=== PATIENT | female | born 1995 | race Caucasian/White ===

== ENCOUNTER 2017-10-22 06:00 | Inpatient (IN) ==
[2017-10-22] MEDS ORDERED: Metoclopramide 10 MG/2 ML VIAL IVP PRN (06:34)
[2017-10-22] MEDS ORDERED: Ondansetron 4 MG/2 ML VIAL IVP PRN (06:34)
[2017-10-22] MEDS ORDERED: Famotidine 20 MG/2 ML VIAL IVP PRN (06:34)
[2017-10-22] MEDS ORDERED: Naloxone 0.4 MG/ML INJ IVP PRN (06:34)
[2017-10-22] MEDS ORDERED: Ringers Solution, Lactated 1,000 ML IVC SCH (06:45)
[2017-10-22 06:48] LABS: Basophils % 0.3 %; Eosinophils # 0.2 K/mcL (0.0-0.6); Eosinophils % 1.9 %; Hematocrit 34.3 % (35.3-44.9); Hemoglobin 11.5 g/dL (11.5-15.4); Immature Granulocytes % 1.5 % (0-4); Lymphocytes # 2.6 K/mcL (0.6-4.6); Lymphocytes % 22.4 %; Mean Corpuscular HGB Conc 33.5 g/dL (31.6-35.5); Mean Corpuscular Volume 86.4 fL (83.0-100.0); Mean Platelet Volume 10.3 fL (9.4-12.4); Monocytes # 0.7 K/mcL (0.0-1.3); Monocytes % 5.8 %; Neutrophils # 7.8 K/mcL (1.6-8.9); Platelet Count 247 K/mcL (140-400); Red Blood Count 3.97 M/mcL (3.82-4.97); Red Cell Distribution Width 13.9 % (11.5-14.5); Segmented Neutrophils % 68.1 %
[2017-10-22 07:11] LABS: Amphetamine Screen,Urine Negative ng/mL (Cutoff=1000); Barbiturate Screen,Urine Negative ng/mL (Cutoff=200); Benzodiazepines Screen,Urine Negative ng/mL (Cutoff=200); Cannabinoid Screen,Urine Negative ng/mL (Cutoff = 50); Cocaine Screen,Urine Negative ng/mL (Cutoff= 300); Opiate Screen,Urine Negative ng/mL (Cutoff=300); Phencyclidine Screen,Urine Negative ng/mL (Cutoff=25)
[2017-10-22] MEDS ORDERED: miSOPROStol 25 MCG TABLET VG SCH (08:00)
--- NOTE | 2017-10-22 10:44 | OB Labor Progress Note ---
Date of Encounter: 10/22/17 Time of Encounter: 10:43 Labor Progress Note - Subjective Subjective: Doing well, some cramps. +GFM - Vital Signs Vital Signs: AF,VSS - Cervix Cervix: 3/70/-2 - Heart Tones Heart Tones: RNST - Interventions Interventions: AROM clear - Plan Plan: Expect
--- NOTE | 2017-10-22 10:46 | OB/GYN History & Physical ---
Date of Encounter: 10/22/17 Time of Encounter: 10:44 Assessment and Plan (1) Term Current visit: Yes Status: Acute Will admit for induction of labor. Plan History of Present Illness Chief complaint: Here for induction HPI: Ms. Chan is a 22 year old female 22 yo at 39w5d gestation presents for induction. complicated by borderline polyhydramnios. On arrival +GFM, no vb or lof. Past Med Surg Social Fam HX - Past Medical History Source: patient Medical history: migraine Psychiatric history: no psych history - Past Surgical History Surgical History: no surgical history - Social History Smoking Status: Never smoker Smokeless Tobacco Status: No Alcohol use: none Drug use: none - Family History Mother Adopted: No Family Member Ethnicity: Non- Living Status: Still Living Hx Family Cardiac Disorders: No Hx Family Respiratory Disorders: No Hx Family Cancer: No Hx Family GI Disorders: No Hx Family Genitourinary Disorders: No Hx Family Endocrine Disorder: No Hx Family Musculoskeletal Disorders: No Hx Family Neuromuscular Disorders: No Hx Family Neurologic Disorders: No Hx Family HEENT Disorders: No Hx Family Autoimmune Disorders: No Hx Family Reproductive Disorders: No Hx Family Psychosocial Disorders: No Hx Family Medical Disorders: (RA, lupus) Obstetrical History - Pregnancies : 1 Medications and Allergies 3 Allergy/AdvReac Type Severity Reaction Status Date / Time azithromycin AdvReac Palpitation Verified 12/23/16 14:15 [From Zithromax Z-Randy] s Exam - Constitutional Constitutional: well developed - HEENT HEENT: EOMI, PERRL - Neck Neck exam: full ROM - Lungs Respiratory exam: CTAB - Cardiovascular Cardiovascular exam: RRR - Abdomen Abdomen: Present: gravid - Extremities Extremities exam: full ROM Deep Tendon Reflex Grade: 2+ Normal - Cervix Dilation: 3 Effacement: 70 Station: -2 - Uterus Uterus exam: Present: normal size Results Result Diagrams: 10/22/17 06:36 Abnormal lab results WBC 11.4 K/mcL (4.3-11.1) H 10/22/17 06:36 Hct 34.3 % (35.3-44.9) L 10/22/17 06:36 All other labs normal.
[2017-10-22] MEDS: *HR* Nalbuphine 10 MG/ML AMPUL IVP PRN ×2 (16:53→18:47)
[2017-10-22] MEDS ORDERED: Oxytocin 20 units/ LR 1000 mL 20 UNIT/1,000 ML BAG IVC SCH (18:00)
[2017-10-22] MEDS ORDERED: Bupivacaine-MPF 0.25% 10 ML VIAL EP ONE (19:28)
[2017-10-22] MEDS ORDERED: *HR* FentaNYL (PF) 100 MCG/2 ML VIAL EP ONE (19:28)
[2017-10-22] MEDS ORDERED: *HR* FentaNYL (PF) 100 MCG/2 ML VIAL ONE (19:29)
[2017-10-22] MEDS ORDERED: Bupivacaine-MPF 0.25% 10 ML VIAL ONE (19:29)
[2017-10-22] MEDS ORDERED: Epidural Premix (fent/bupiv) 110 ML EP SCH (19:30)
[2017-10-22] MEDS ORDERED: Epidural Premix (fent/bupiv) 110 ML EP ONE ×2 (19:33→22:11)
--- NOTE | 2017-10-22 20:06 | Anesthesia Evaluation PreOp ---
Date of Encounter: 10/22/17 Time of Encounter: 20:04 - Past History Planned Operation: DILEEP Cardiac History: Denies any Significant Hx Pulmonary History: Denies Any Significant HX COMPLIANCE SPECIALIST History: Denies Any Significant HX Other Medical History: Denies Any Significant HX Anesthesia History: No Prior Anesthetic Complications (never had any procedure requiring GA or NA; denies family h/o GA complications) : Yes Test: Positive Alcohol Use: none Drug use: none Medications and Allergies 3 Allergy/AdvReac Type Severity Reaction Status Date / Time azithromycin AdvReac Palpitation Verified 12/23/16 14:15 [From Zithromax Z-Randy] s - Meds/Allergy Pre-op Review Medications Reviewed: Yes Allergies Reviewed: Yes Beta Blockers on Current Med List: No Anesthesia Results - Labs 10/22/17 06:36 Anesthesia Exam 129/81, HR 64, RR 24 O2 Sat Height 1.6 m Weight 89.3 kg NPO (# of Hours): solids > 8hrs Pain Scale: 10 Pain Scale Used: Santy (Faces) - HEENT Pupil (Motor): Pupils equal Mallampati: II Teeth: Normal Oral Opening: Greater than 3 - COMPLIANCE SPECIALIST LOC: Oriented COMPLIANCE SPECIALIST Motor: Normal RUE, Normal LUE, Normal RLE, Normal LLE, Normal Face COMPLIANCE SPECIALIST Sensory: Normal: RUE, LUE, RLE, LLE, Face - Cardiac Rhythm: Regular Murmur: None - Pulmonary Breath Sounds: bilateral Clear Respiratory Effort: Symmetrical Anesthesia Assess/Plan ASA Score: 2 Modified Maria Elena Scale for Level of Consciousness: Anixous, agitated or restless Anesthetic Plan: Regional Autologous Blood: No Monitoring Plan: Standard Monitors Recovery Plan: Other
--- NOTE | 2017-10-22 20:09 | Anesthesia Procedures ---
Date of Encounter: 10/22/17 Time of Encounter: 20:06 Procedures: Anesthesia - Epidural/Spinal Patient ID/Chart reviewed: Yes Patient examined: Yes OB Eval: Gestational age: 39 weeks 5 days OB Eval: : 1 OB Eval: Hx Para: 0 OB Eval: Dilated at (cm): 7 OB Eval: Contractions: Non-stressed pattern Consent Obtained: Yes Supplemental Oxygen: None/Room Air Site Prep: Aseptic Technique, Sterile prep and drape, Povidone-Iodine 1% Patient position: upright Local Anesthetic: Lidocaine 1% Amount of Local Anesthetic used: 3 Touhy Needle Gauge: 18 Touhy Needle Depth (cm): 6 Catheter Depth at Skin (cm): 11 Test Dose (1.5% Lido + Epi): Volume given (mls): 5 Test Dose Result: Negative Loading Dose: 0.25% Marcaine (mls): 5 Loading Dose: Fentanyl (mcg): 100 Loading Dose Administered: Thru Catheter Infusion Med: 0.125% Bupivacaine w/ 2 mcg/ml Fentanyl Infusion Rate (mls/hr): 14 (w/ demand bolus of 5mL q30min PRN) Catheter Secured in Place: Tegaderm, Tape Interspace Used: L3-L4 Loss of Resistance (NICKOLAS): Yes Blood: No CSF: No Paresthesia: No Procedure: successful on 1st attempt; patient tolerated well Vitals + FHT's: please see [facility] electronic records for VS entry. 100mcg phenylephrine IVP given after bolus dose for SBP in 90s. Next SBP reading was 116
[2017-10-23] MEDS ORDERED: Epidural Premix (fent/bupiv) 110 ML EP ONE (00:47)
[2017-10-23] MEDS ORDERED: Acetaminophen 325 MG TABLET PO ONE (03:11)
--- NOTE | 2017-10-23 05:27 | OB/GYN Procedure Note ---
Delivery - Delivery Date: 10/23/17 Provider: Aj Brady Intrapartum events: none Delivery induction: misoprostol Delivery augmentation: rupture of membranes Delivery monitor: external FHT, internal uterine Anesthesia: local, epidural Estimated Blood Loss: 250 - Infant (s) A Delivery Date: 10/23/17 Infant Delivery Time: 00:49 Presentation: vertex Position: ROP Route of delivery: vacuum extraction Gender: Male Viability: Viable Pounds: 8 Ounces: 8 at 1 minute: 7 at 5 mins: 7 Specimens collected: cord blood Placenta: spontaneous Cord: 3 umbilical vessels - Repair Episiotomy: midline Laceration Description: Perineal - 3rd Degree (partial) - Complications Delivery complications: none Delivery comments: Pt s/p vaginal delivery with vacuum assistance. Vacuum was applied at + 4 station secondary to maternal exhaustion and bradycardia. It was applied twice at pressure 550 mg first time for 23 seconds and second time for 29 seconds. We had good progression of station with both application attempts. Both attempts ended in spontaneous pop off. Infant was delivered from ROP presentation. MLE was cut under local and epidural anesthesia. Minimal 3rd degree laceration occured with small tear into capusle. The third degree portion of the repair was achieved under local with 2-0 vicryl. The 2nd degree was performed with 3-0 vicryl. EBL was 350cc. Mom recovered in labor room, baby was taken to nursery in stable condition with increased respiratory effort. Apgars were 7 at one minute and 7 at 5 minutes.
[2017-10-23] MEDS ORDERED: Ibuprofen 600 MG TABLET PO ONE (05:30)
[2017-10-23] MEDS ORDERED: Measles/Mumps/Rubella Vacc 0.5 ML VIAL SQ PRN (09:16)
[2017-10-23] MEDS ORDERED: Oxytocin 20 units/ LR 1000 mL 20 UNIT/1,000 ML BAG IVC ONE (09:16)
[2017-10-23] MEDS ORDERED: *HR* HYDROcodone/Acet 5/325 mg TABLET PO PRN (09:16)
[2017-10-23] MEDS ORDERED: Rho Immune Globulin 1,500 UNIT SYRINGE IM PRN (09:16)
[2017-10-23] MEDS ORDERED: Oxytocin 20 units/ LR 1000 mL 20 UNIT/1,000 ML BAG IVC SCH (09:16)
[2017-10-23] MEDS ORDERED: Acetaminophen 325 MG TABLET PO PRN (09:16)
[2017-10-23] MEDS: Prenatal Vit/FA 1 EACH TABLET PO SCH (13:56)
[2017-10-23] MEDS: Ibuprofen 600 MG TABLET PO PRN ×2 (13:56→21:07)
[2017-10-24 04:23] LABS: Basophils # 0.1 K/mcL (0.0-0.2); Basophils % 0.4 %; Eosinophils # 0.3 K/mcL (0.0-0.6); Eosinophils % 2.3 %; Hematocrit 28.7 % (35.3-44.9); Immature Granulocytes % 0.8 % (0-4); Lymphocytes # 2.6 K/mcL (0.6-4.6); Lymphocytes % 19.8 %; Mean Corpuscular HGB Conc 32.4 g/dL (31.6-35.5); Mean Corpuscular Hemoglobin 28.4 pg (28.0-33.3); Mean Corpuscular Volume 87.5 fL (83.0-100.0); Mean Platelet Volume 10.6 fL (9.4-12.4); Monocytes # 0.6 K/mcL (0.0-1.3); Monocytes % 4.7 %; Neutrophils # 9.4 K/mcL (1.6-8.9); Platelet Count 177 K/mcL (140-400); Red Blood Count 3.28 M/mcL (3.82-4.97); Red Cell Distribution Width 14.3 % (11.5-14.5)
[2017-10-24 04:34] LABS: Hemoglobin 9.3 g/dL (11.5-15.4)
[2017-10-24] MEDS: Ibuprofen 600 MG TABLET PO PRN (07:39)
[2017-10-24] MEDS: Prenatal Vit/FA 1 EACH TABLET PO SCH (07:39)
[2017-10-24 07:51] VITALS: BP 106/69
--- NOTE | 2017-10-24 08:56 | Discharge Summary ---
Date of Encounter: 10/24/17 Time of Encounter: 08:52 - Discharge Diagnosis (1) Status post normal vaginal delivery Priority: Primary Status: Acute Comments: Doing well. States mild abdominal cramping controlled with Ibuprofen. Ambulating and voiding well. Passing gas, no BM since delivery. Lochia light and without clots. bottle feeding with no problems. Desires to go home today. - Discharge Medications Prescriptions: Docusate [Colace] 100 mg PO BID 10 Days #20 capsule Ferrous Sulfate 325 mg PO DAILY 60 Days #60 tablet Home Medications: Acetaminophen [Tylenol] 650 mg PO Q6HR PRN tablet 10/24/17 [Rx] Docusate [Colace] 100 mg PO BID 10 Days #20 capsule 10/24/17 [Rx] Ferrous Sulfate 325 mg PO DAILY 60 Days #60 tablet 10/24/17 [Rx] Ibuprofen [Motrin] 600 mg PO Q6HR PRN tablet 10/24/17 [Rx] Vit/FA 1 each PO DAILY tablet 10/24/17 [Rx] Allergies/Adverse Reactions: 3 Allergy/AdvReac Type Severity Reaction Status Date / Time azithromycin AdvReac Palpitation Verified 12/23/16 14:15 [From Zithromax Z-Randy] s Data Procedures and tests throughout hospitalization: Laboratory Tests 10/22/17 10/22/17 10/24/17 06:35 06:36 04:01 WBC 11.4 H 13.1 H RBC 3.97 3.28 L Hgb 11.5 9.3 L D Hct 34.3 L 28.7 L MCV 86.4 87.5 MCH 29.0 28.4 MCHC 33.5 32.4 RDW 13.9 14.3 Plt Count 247 177 MPV 10.3 10.6 Immature Gran % 1.5 0.8 Seg Neutrophils % 68.1 72.0 Lymphocytes % 22.4 19.8 Monocytes % 5.8 4.7 Eosinophils % 1.9 2.3 Basophils % 0.3 0.4 Neutrophils # 7.8 9.4 H Lymphocytes # 2.6 2.6 Monocytes # 0.7 0.6 Eosinophils # 0.2 0.3 Basophils # 0.0 0.1 Urine Opiates Screen Negative Ur Barbiturates Screen Negative Ur Phencyclidine Scrn Negative Ur Amphetamines Screen Negative U Benzodiazepines Scrn Negative Urine Cocaine Screen Negative U Marijuana (THC) Screen Negative Labs on day of discharge: Labs from last 24 hours 10/24/17 04:01 WBC 13.1 H RBC 3.28 L Hgb 9.3 L D Hct 28.7 L MCV 87.5 MCH 28.4 MCHC 32.4 RDW 14.3 Plt Count 177 MPV 10.6 Immature Gran % 0.8 Seg Neutrophils % 72.0 Lymphocytes % 19.8 Monocytes % 4.7 Eosinophils % 2.3 Basophils % 0.4 Neutrophils # 9.4 H Lymphocytes # 2.6 Monocytes # 0.6 Eosinophils # 0.3 Basophils # 0.1 Date of admission: 10/22/17 06:11 Primary care physician: PCP NONE Consults: 10/23/17 09:16 Consult to Commercial [employer] Assistant [CONS] Routine Comment: Vaginal delivery, consult needed Discharging clinician: Emy Trotter - Patient Status Disposition: Home, Self-Care Condition: Good Functional capacity at discharge: independent ambulation Overall status at discharge: patient is progressing back to baseline - Discharge Instructions Follow Up With: NONE,PCP [Primary Care Provider] - Aj Brady MD [Partnered Physician] - - Diet and Activity Activity: resume usual activities as tolerated Diet: advance to your usual diet Hospital Course Reason for admission: induction of labor Delivery: vacuum extraction Episiotomy: midline Laceration: none Other procedures: none complications: none Union baby: male Time spent discussing smoking cessation with patient: 3 to 10 minutes Time Attestation: Total time spent providing and/or coordinating discharge services: Time Spent: Less than 30 minutes Exam - Constitutional Vitals: Temp Pulse Resp BP Pulse Ox 98.1 F 92 16 106/69 96 10/24/17 07:50 10/24/17 07:50 10/24/17 07:50 10/24/17 07:50 10/24/17 02:50 General appearance IM: cooperative, mild distress, A&O X 3, pleasant, answers questions appropriately - Respiratory Respiratory exam: Present: CTAB - Cardiovascular Cardiovascular exam IM: Present: RRR - GI/Abdominal GI/Abdominal exam IM: normal bowel sounds - Rectal Rectal exam: deferred - Uterus Position: At Umbilicus, Midline - Extremities Exam Extremities exam IM: Present: full ROM, normal inspection, warm, radial pulses palpable and symmetrical - Neurological Exam Neurological exam: alert, normal gait, oriented X3
== END 2017-10-24 10:50 | disposition home or self-care (01) | DRG 775 ==
LOC: 1NENULAB 06:11 → 1NENUOBS 10-23 08:53
PROVIDERS: ADMIT Advanced Practice Midwife; ATTEND Advanced Practice Midwife

== ENCOUNTER 2021-03-03 12:04 | Inpatient (IN) ==
[2021-03-03] MEDS ORDERED: Ondansetron 4 MG/2 ML VIAL IVP PRN (12:32)
[2021-03-03] MEDS ORDERED: Famotidine 20 MG/2 ML VIAL IVP PRN (12:32)
[2021-03-03] MEDS ORDERED: miSOPROStoL 25 MCG TABLET PO PRN (12:32)
[2021-03-03] MEDS ORDERED: Azithromycin 500 MG in 0.9 % Sodium Chloride 250 ML IVPB PRN (12:32)
[2021-03-03] MEDS ORDERED: Metoclopramide 10 MG/2 ML VIAL IVP PRN (12:32)
[2021-03-03] MEDS ORDERED: Naloxone 0.4 MG/ML INJ IVP PRN (12:32)
[2021-03-03] MEDS ORDERED: Ringers Solution, Lactated 1,000 ML IVC SCH (12:45)
[2021-03-03 13:34] LABS: Basophils % 0.3 %; Eosinophils # 0.2 K/mcL (0.0-0.6); Eosinophils % 1.4 %; Hematocrit 37.9 % (35.3-44.9); Hemoglobin 13.1 g/dL (11.5-15.4); Immature Granulocytes % 0.9 % (0-4); Lymphocytes # 1.8 K/mcL (0.6-4.6); Lymphocytes % 16.2 %; Mean Corpuscular HGB Conc 34.6 g/dL (31.6-35.5); Mean Corpuscular Hemoglobin 30.8 pg (28.0-33.3); Mean Platelet Volume 10.8 fL (9.4-12.4); Monocytes # 0.6 K/mcL (0.0-1.3); Monocytes % 5.7 %; Neutrophils # 8.5 K/mcL (1.6-8.9); Platelet Count 226 K/mcL (140-400); Red Blood Count 4.26 M/mcL (3.82-4.97); Red Cell Distribution Width 13.1 % (11.5-14.5); Segmented Neutrophils % 75.5 %; White Blood Count 11.2 K/mcL (4.3-11.1)
[2021-03-03] MEDS ORDERED: Oxytocin 20 units/ LR 1000 mL 20 UNIT/1,000 ML BAG IVC SCH (14:15)
[2021-03-03 14:37] LABS: Influenza A PCR Negative (Negative); Influenza B PCR Negative (Negative); Resp. Syncytial Virus PCR Negative (Negative)
[2021-03-03 14:39] LABS: SARS-CoV-2 by PCR (In House) Negative (Negative)
[2021-03-03] MEDS ORDERED: EPHEDrine 50 MG/ML VIAL IVP PRN (14:44)
[2021-03-03] MEDS ORDERED: *HR* FentaNYL (PF) 100 MCG/2 ML VIAL EP ONE (14:44)
[2021-03-03] MEDS ORDERED: Ropivacaine/PF 0.2% 20 ML VIAL EP ONE (14:44)
[2021-03-03] MEDS ORDERED: Epidural Premix (fent/bupiv) 110 ML EP SCH (14:45)
[2021-03-03 15:39] LABS: Amphetamine Screen,Urine Negative ng/mL (Cutoff=1000); Barbiturate Screen,Urine Negative ng/mL (Cutoff=200); Benzodiazepines Screen,Urine Negative ng/mL (Cutoff=200); Cannabinoid Screen,Urine Negative ng/mL (Cutoff = 50); Cocaine Screen,Urine Negative ng/mL (Cutoff= 300); Opiate Screen,Urine Negative ng/mL (Cutoff=300); Phencyclidine Screen,Urine Negative ng/mL (Cutoff=25)
[2021-03-04] MEDS ORDERED: Ibuprofen 400 MG TABLET PO PRN (04:48)
[2021-03-04] MEDS ORDERED: Lidocaine 1% 20 ML MDV ONE (04:52)
[2021-03-04] MEDS ORDERED: Measles/Mumps/Rubella Vacc 0.5 ML VIAL SQ PRN (05:43)
[2021-03-04] MEDS ORDERED: Oxytocin 20 units/ LR 1000 mL 20 UNIT/1,000 ML BAG IVC SCH (05:43)
[2021-03-04] MEDS ORDERED: Benzocaine/Menthol 56 GM AEROSOL SPRAY TP PRN (05:43)
[2021-03-04] MEDS ORDERED: Oxytocin 20 units/ LR 1000 mL 20 UNIT/1,000 ML BAG IVC ONE (05:43)
[2021-03-04] MEDS ORDERED: Lanolin 7 G OINT...G. TP PRN (05:43)
[2021-03-04] MEDS ORDERED: Rho Immune Globulin 1,500 UNIT SYRINGE IM PRN (05:43)
[2021-03-04] MEDS ORDERED: Ondansetron ODT 4 MG TAB.RAPDIS SL PRN (05:43)
[2021-03-04] MEDS ORDERED: Acetaminophen 325 MG TABLET PO SCH (06:00)
[2021-03-04] MEDS: Prenatal Vit/FA 1 EACH TABLET PO SCH (08:41)
[2021-03-04 08:49] VITALS: O2SAT 96
[2021-03-04] MEDS: Ibuprofen 600 MG TABLET PO SCH ×3 (08:50→22:53)
[2021-03-04] MEDS ORDERED: miSOPROStoL 100 MCG TABLET RC ONE (09:25)
[2021-03-04] MEDS: Acetaminophen 325 MG TABLET PO SCH ×2 (14:42→20:35)
[2021-03-05 04:11] LABS: Basophils # 0.1 K/mcL (0.0-0.2); Basophils % 0.5 %; Eosinophils # 0.4 K/mcL (0.0-0.6); Eosinophils % 2.8 %; Hematocrit 33.1 % (35.3-44.9); Immature Granulocytes % 0.7 % (0-4); Lymphocytes # 2.4 K/mcL (0.6-4.6); Lymphocytes % 19.8 %; Mean Corpuscular HGB Conc 32.9 g/dL (31.6-35.5); Mean Corpuscular Hemoglobin 30.4 pg (28.0-33.3); Mean Corpuscular Volume 92.2 fL (83.0-100.0); Mean Platelet Volume 10.6 fL (9.4-12.4); Monocytes # 0.6 K/mcL (0.0-1.3); Monocytes % 4.7 %; Neutrophils # 8.8 K/mcL (1.6-8.9); Platelet Count 218 K/mcL (140-400); Red Blood Count 3.59 M/mcL (3.82-4.97); Red Cell Distribution Width 13.5 % (11.5-14.5); Segmented Neutrophils % 71.5 %; White Blood Count 12.3 K/mcL (4.3-11.1)
[2021-03-05 04:15] LABS: Hemoglobin 10.9 g/dL (11.5-15.4)
[2021-03-05] MEDS: Prenatal Vit/FA 1 EACH TABLET PO SCH (09:02)
[2021-03-05 09:38] VITALS: BP 111/73; PULSE 87; TEMP 97.9
== END 2021-03-05 16:00 | disposition home or self-care (01) | DRG 807 ==
LOC: 1NENULAB 12:04 → 1NENUOBS 03-04 07:48
PROVIDERS: ADMIT Obstetrics & Gynecology; ATTEND Obstetrics & Gynecology